=== PATIENT | male | born 1970 | race Caucasian/White ===

== ENCOUNTER 2020-12-01 13:19 | Inpatient (IN) | payer OTHER ==
[2020-12-01 14:25] VITALS: BMI 19.8
[2020-12-01] MEDS ORDERED: ALBUTEROL SO4 HFA INHALER IH PRN (16:08)
[2020-12-01] MEDS ORDERED: MAG HYDROX/AL HYDROX/SIMETH 30 ML UNIT-DOSE CUP PO PRN (16:11)
[2020-12-01] MEDS ORDERED: ACETAMINOPHEN 325 MG TABLET (FP) PO PRN ×2 (16:11)
[2020-12-01] MEDS ORDERED: MAGNESIUM CITRATE 300 ML BOTTLE PO PRN (16:11)
[2020-12-01] MEDS ORDERED: MENTHOL/PHENOL 1 EACH UD MM PRN (16:11)
[2020-12-01] MEDS ORDERED: MAGNESIUM HYDROX 2400MG/30ML ORAL SUSPENSION 30 ML CUP PO PRN (16:11)
[2020-12-01] MEDS ORDERED: BISMUTH SUBSALICYLATE 524 MG/30 ML PO PRN (16:11)
[2020-12-01] MEDS ORDERED: NICOTINE 10 MG CARTRIDGE (INHALER) IH PRN (16:11)
[2020-12-01] MEDS ORDERED: ONDANSETRON *ODT* 4 MG TABLET SL PRN (16:11)
[2020-12-01] MEDS: GABAPENTIN 400 MG CAPSULE PO SCH (23:51)
[2020-12-01] MEDS: THIAMINE HCL 100 MG TABLET (FP) PO SCH (23:51)
[2020-12-01] MEDS: MELATONIN 5 MG TABLETS PO SCH (23:51)
[2020-12-02] MEDS ORDERED: PATIENT'S OWN MEDICATION (NON-FORMULARY) (Elviteg/Cob/Emtri/Tenof Alafen 1 TAB Tablet) PO SCH (10:00)
[2020-12-02] MEDS: GABAPENTIN 400 MG CAPSULE PO SCH ×2 (11:43→22:23)
[2020-12-02] MEDS: PRENATAL VITAMINS W/ FOLIC ACID TABLET (FP) PO SCH (11:43)
[2020-12-02] MEDS: MIRTAZAPINE 15 MG TABLET (FP) PO SCH (11:43)
[2020-12-02] MEDS ORDERED: cloNIDine HCL 0.1 MG TABLET PO PRN (12:16)
[2020-12-02] MEDS ORDERED: clonazePAM 0.5 MG ODT TABLETS SL PRN (12:16)
[2020-12-02 15:15] LABS: CALCIUM 8.2 mg/dL (8.5-10.1)
[2020-12-02] MEDS ORDERED: methaDONE HCL 10 MG TABLET (FOR DETOX USE ONLY) PO ONE (15:15)
[2020-12-02 15:16] LABS: ALBUMIN 2.6 g/dl (3.4-5.0); BLOOD UREA NITROGEN 10.7 mg/dL (7-18)
[2020-12-02 15:19] LABS: CREATININE 0.8 mg/dL (0.55-1.3)
[2020-12-02 15:21] LABS: BILIRUBIN,TOTAL 0.2 mg/dL (0.2-1); TOT PROT 7.9 g/dl (6.4-8.2)
[2020-12-02 15:33] LABS: HEMATOCRIT 29.5 % (35.4-49); HEMOGLOBIN 10.2 GM/dL (11.7-16.9); MCH 27.5 pg (25.7-33.7); MCHC 34.4 g/dl (32.0-35.9); MEAN CELL VOLUME 79.9 fl (80-96); MEAN PLT VOLUME 9.5 fl (7.5-11.1); PLATELET COUNT 196 10^3/uL (134-434); RBC 3.69 M/mm3 (4.00-5.60); RDW 16.8 % (11.9-15.9); WHITE BLOOD COUNT 3.8 K/mm3 (4.0-10.0)
[2020-12-02] MEDS: THIAMINE HCL 100 MG TABLET (FP) PO SCH (22:23)
[2020-12-02] MEDS: MELATONIN 5 MG TABLETS PO SCH (22:23)
[2020-12-03] MEDS ORDERED: methaDONE HCL 10 MG TABLET (FOR DETOX USE ONLY) ONE (09:34)
[2020-12-03] MEDS: MIRTAZAPINE 15 MG TABLET (FP) PO SCH (10:07)
[2020-12-03] MEDS: GABAPENTIN 400 MG CAPSULE PO SCH ×2 (10:08→22:45)
[2020-12-03] MEDS: METHOCARBAMOL 500 MG TABLET PO PRN ×2 (10:08→17:36)
[2020-12-03] MEDS: PRENATAL VITAMINS W/ FOLIC ACID TABLET (FP) PO SCH (10:10)
[2020-12-03] MEDS: ELVITEG/COB/EMTRI/TENOFO (STRIBILD) TABLET -NF PO SCH (12:11)
[2020-12-03] MEDS: hydrOXYzine PAMOATE 25 MG CAPSULE (FP) PO PRN ×2 (17:36→22:45)
[2020-12-03] MEDS: MELATONIN 5 MG TABLETS PO SCH (22:45)
[2020-12-03] MEDS: THIAMINE HCL 100 MG TABLET (FP) PO SCH (22:45)
[2020-12-04] MEDS: hydrOXYzine PAMOATE 25 MG CAPSULE (FP) PO PRN ×2 (06:00→10:51)
[2020-12-04] MEDS: METHOCARBAMOL 500 MG TABLET PO PRN (06:00)
[2020-12-04] MEDS ORDERED: methaDONE HCL 10 MG TABLET (FOR DETOX USE ONLY) PO ONE (10:00)
[2020-12-04] MEDS: IBUPROFEN 400 MG TABLET (FP) PO PRN ×2 (10:50→22:27)
[2020-12-04] MEDS: DOXYCYCLINE HYCLATE 100 MG TABLET PO SCH ×2 (10:51→17:18)
[2020-12-04] MEDS: ELVITEG/COB/EMTRI/TENOFO (STRIBILD) TABLET -NF PO SCH ×2 (10:51→18:58)
[2020-12-04] MEDS: GABAPENTIN 400 MG CAPSULE PO SCH ×2 (10:51→22:27)
[2020-12-04] MEDS: MIRTAZAPINE 15 MG TABLET (FP) PO SCH (10:51)
[2020-12-04] MEDS: PRENATAL VITAMINS W/ FOLIC ACID TABLET (FP) PO SCH (10:51)
[2020-12-04] MEDS: MELATONIN 5 MG TABLETS PO SCH (22:27)
[2020-12-04] MEDS: THIAMINE HCL 100 MG TABLET (FP) PO SCH (22:27)
[2020-12-05] MEDS: DOXYCYCLINE HYCLATE 100 MG TABLET PO SCH (06:14)
[2020-12-05 09:17] VITALS: BP 127/69; PULSE 58; TEMP 96.3
[2020-12-05] MEDS: ELVITEG/COB/EMTRI/TENOFO (STRIBILD) TABLET -NF PO SCH (10:18)
[2020-12-05] MEDS: PRENATAL VITAMINS W/ FOLIC ACID TABLET (FP) PO SCH (10:18)
[2020-12-05] MEDS: MIRTAZAPINE 15 MG TABLET (FP) PO SCH (10:18)
[2020-12-05] MEDS: GABAPENTIN 400 MG CAPSULE PO SCH (10:18)
== END 2020-12-05 11:00 | disposition other institution (70) | DRG 773 ==
LOC: YASAS 13:19 → Y6N 21:24 → Y3N 12-04 18:18
PROVIDERS: ADMIT Allergy & Immunology; ATTEND Allergy & Immunology
PROC: HZ2ZZZZ Detoxification Services for Substance Abuse Treatment (ICD-10-PCS; principal; 2020-12-01)
DX: F11.23 Opioid dependence with withdrawal (principal); F14.20 Cocaine dependence, uncomplicated; Z21 Asymptomatic human immunodeficiency virus [HIV] infection status; L03.114 Cellulitis of left upper limb; R07.89 Other chest pain; Z87.891 Personal history of nicotine dependence
CPT/HCPCS: 36415; 80053; 85027; 86780; C9803; Q0162; U0003; U0005